=== PATIENT | female | born 1945 | race Caucasian/White ===

== ENCOUNTER 2022-08-30 08:14 | Observation (INO) | payer OTHER ==
[2022-08-30] MEDS ORDERED: LEVALBUTEROL 1.25 MG/3 ML NEB ONE (08:48)
[2022-08-30] MEDS ORDERED: NA CHLORIDE 0.9% 500 ML ONE (08:49)
[2022-08-30 08:50] LABS: Absolute Lymphocytes (CBC) 1.8 K/uL (0.7-4.9); Lymphocytes % 32.2 % (15.3-44.8); MCV 86.2 fL (80-100); MPV 7.7 fL (7.6-11.3)
[2022-08-30 08:51] LABS: Protime INR 1.14
[2022-08-30 09:02] LABS: Albumin 3.2 g/dL (3.4-5.0); BUN Blood Urea Nitrogen 17 mg/dL (7-18); Bicarbonate 23 mmol/L (21-32); Glucose Level 150 mg/dL (74-106); Magnesium 1.9 mg/dL (1.6-2.4); Potassium 3.4 mmol/L (3.5-5.1); Sodium Level 132 mmol/L (136-145)
[2022-08-30 09:10] LABS: ALT/SGPT 58 U/L (13-56); AST/SGOT 65 U/L (15-37); Alkaline Phosphatase 61 U/L (45-117); Bilirubin Direct < 0.1 mg/dL (0-0.2); Bilirubin Total 0.4 mg/dL (0.2-1.0); Glomerular Filtration Rate 65 ml/min (=/>90); NT PRO-BNP 79 pg/mL (<450); Protein, Total 6.7 g/dL (6.4-8.2); Troponin High Sensitivity 9.3 pg/mL (<58.9)
--- NOTE | 2022-08-30 09:37 | RAD REPORT ---
EXAM DESCRIPTION: RAD - Chest Single View - 08/30/2022 9:26 am CLINICAL HISTORY: SOB COMPARISON: 10/22/2017 FINDINGS: Lines: None. Lungs: No evidence of edema or pneumonia. Scattered noncalcified pulmonary nodules . Pleural: No significant pleural effusions or pneumothorax. Cardiac: The heart size is within normal limits. Mediastinum: Within normal limits. Bones: No acute fractures. Other: None IMPRESSION: No acute cardiopulmonary disease.
[2022-08-30] MEDS ORDERED: NA CHLORIDE 0.9% 1,000 ML ONE (09:57)
[2022-08-30 10:19] LABS: SARS-COV-2 RT PCR POSITIVE (NEGATIVE)
[2022-08-30 12:02] LABS: Urine Blood Negative (Negative); Urine Glucose Negative (Negative); Urine Protein Negative (Negative); Urine pH 5.5 (5.0-7.0)
--- NOTE | 2022-08-30 14:07 | EDPHYS ---
Physician Documentation [facility] Name: Yamilet Rhodes Age: 76 yrs Sex: Female : 1945 Arrival Date: 08/30/2022 Time: 08:16 Bed 7 Private MD: ED Physician Rickey Kelly HPI: 08/30 08:30 This 76 yrs old Female presents to ER via Wheelchair with complaints of Weakness. jmm 13:38 This 76 yrs old Female presents to ER via Wheelchair with complaints of Weakness. jmm 08:30 Duration: The symptoms are continuous. This is a 76-year-old female with history of [facility] coronary artery disease, hyperlipidemia, hypertension the presents emerged department with complaints of fatigue, cough, congestion beginning approximately a week ago but worsening over the past 2 days. Patient states she has had falls due to weakness. States having difficulty walking more than a few feet at a time. Denies chest pain.. 14:02 Onset: The symptoms/episode began/occurred gradually. [facility] Historical: - Allergies: 08:22 No Known Allergies; jl7 - Home Meds: 08:22 simvastatin 20 mg Oral tab 1 tab once daily [Active]; metoprolol succinate oral jl7 [Active]; - PMHx: 08:22 CAD; High Cholesterol; Hypertension; Myocardial infarction; jl7 - PSHx: 08:22 Ligation of fallopian tube; jl7 - Immunization history:: Client reports having NOT received the Covid vaccine. - Social history:: Smoking status: Patient denies any tobacco usage or history of. ROS: 08:30 Constitutional: Positive for body aches. jmm 08:30 Respiratory: Positive for cough. 08:30 Neuro: Positive for weakness. 08:30 All other systems are negative. Exam: 08:30 Constitutional: This is a well developed, well nourished patient who is awake, alert, jmm and in no acute distress. Head/Face: atraumatic. Eyes: EOMI, no conjunctival erythema appreciated ENT: Moist Mucus Membranes Neck: Trachea midline, Supple Chest/axilla: Normal chest wall appearance and motion. Cardiovascular: Regular rate and rhythm. No edema appreciated Respiratory: Normal respirations, no respiratory distress appreciated Abdomen/GI: Non distended Back: Normal ROM Skin: General appearance color normal 08:30 MS/ Extremity: Moves all extremities, no obvious deformities appreciated, no edema noted to the lower extremities 08:30 Musculoskeletal/extremity: ROM: intact in all extremities. 08:30 Neuro: Motor: is normal. 11:39 ECG was reviewed by the Attending Physician. [facility] Vital Signs: 08:20 BP 115 / 89; Pulse 65; Resp 28 S; Temp 97.3(TE); Pulse Ox 100% on R/A; Weight 79.38 kg jl7 (R); Height 5 ft. 0 in. (152.40 cm) (R); Pain 9/10; 10:02 BP 138 / 70; Pulse 90; Resp 31; Pulse Ox 98% ; bp 11:22 BP 132 / 83; Pulse 73; Resp 15; Pulse Ox 92% ; bp 12:30 BP 133 / 70; Pulse 68; Resp 21; Pulse Ox 98% ; bp 13:23 BP 138 / 72; Pulse 69; Resp 16; Pulse Ox 97% ; bp 15:19 BP 157 / 74; Pulse 73; Resp 16; Pulse Ox 96% ; bp 08:20 Body Mass Index 34.18 (79.38 kg, 152.40 cm) 7 MDM: 08:24 Patient medically screened. [facility] 14:04 Data reviewed: vital signs, nurses notes, lab test result(s). [facility] 14:04 Consideration of Admission/Observation Patient was admitted/placed on observation. [facility] Management of patient was discussed with the following: Hospitalist: Fabien Marin. I considered the following discharge prescriptions or medication management in the emergency department Medications were administered in the Emergency Department. See MAR. Care significantly affected by the following chronic conditions: Hypertension. Counseling: I had a detailed discussion with the patient and/or guardian regarding: the historical points, exam findings, and any diagnostic results supporting the discharge/admit diagnosis, lab results, radiology results, the need for further work-up and treatment in the hospital. ED course: Repeat lactate is increased from 2.8 to 3.3 after IVF. . 15:01 ED course: a) Source coronavirus b) HR 90 and Resp 31 C) Elevated lactate. [facility] 08/30 08:24 Order name: Basic Metabolic Panel; Complete Time: 09:52 [facility] 08/30 08:24 Order name: CBC with Diff; Complete Time: 08:59 [facility] 08/30 08:24 Order name: LFT's; Complete Time: 09:52 [facility] 08/30 08:24 Order name: Magnesium; Complete Time: 09:52 [facility] 08/30 08:24 Order name: NT PRO-BNP; Complete Time: 09:52 [facility] 08/30 08:24 Order name: PT-INR; Complete Time: 08:59 [facility] 08/30 08:24 Order name: Troponin HS; Complete Time: 09:52 [facility] 08/30 08:24 Order name: COVID-19/FLU A+B; Complete Time: 10:39 [facility] 08/30 08:25 Order name: Lactate w/ 2H reflex if indic.; Complete Time: 09:10 [facility] 08/30 12:03 Order name: Urine Dipstick-Ancillary; Complete Time: 12:13 [facility] 08/30 12:44 Order name: Lactate Sepsis 2 HR Follow-up; Complete Time: 12:45 [facility] 08/30 14:47 Order name: Creatine Phosphokinase [facility] 08/30 14:47 Order name: Urinalysis [facility] 08/30 08:24 Order name: XRAY Chest (1 view); Complete Time: 09:52 [facility] 08/30 08:24 Order name: EKG; Complete Time: 08:25 [facility] 08/30 14:47 Order name: Basic Metabolic Panel [facility] 08/30 14:47 Order name: Basic Metabolic Panel [facility] 08/30 14:47 Order name: Basic Metabolic Panel [facility] 08/30 14:47 Order name: Basic Metabolic Panel [facility] 08/30 14:47 Order name: CBC with Automated Diff EDMS 08/30 14:47 Order name: CBC with Automated Diff MS 08/30 14:47 Order name: CBC with Automated Diff EDMS 08/30 14:47 Order name: CBC with Automated Diff EDMS 08/30 14:47 Order name: Lactate w/ 2H reflex if indic. EDIN 08/30 15:04 Order name: Blood Culture Adult (2) [facility] 08/30 08:24 Order name: Cardiac monitoring; Complete Time: 08:34 [facility] 08/30 08:24 Order name: EKG - Nurse/Tech; Complete Time: 08:33 [facility] 08/30 08:24 Order name: IV Saline Lock; Complete Time: 08:34 [facility] 08/30 08:24 Order name: Labs collected and sent; Complete Time: 08:34 [facility] 08/30 08:24 Order name: O2 Per Protocol; Complete Time: 08:33 [facility] 08/30 08:24 Order name: O2 Sat Monitoring; Complete Time: 08:33 [facility] 08/30 10:14 Order name: Urine Dipstick-Ancillary (obtain specimen); Complete Time: 10:37 [facility] 08/30 13:10 Order name: Misc. Order: ambulate, o2; Complete Time: 14:01 [facility] 08/30 14:47 Order name: Heart Healthy EDMS EC:39 Rate is 62 beats/min. Rhythm is regular. QRS [place] is Normal. NE interval is normal. T jmm waves are Flattened in lead aVL. No ST changes noted. Administered Medications: 08:45 Drug: NS 0.9% 500 ml Route: IV; Rate: bolus; Site: right antecubital; bp 15:12 Follow up: IV Status: Completed infusion; IV Intake: 500ml bp 08:45 Drug: Xopenex (levalbuterol) (3) 1.25 mg Route: Inhalation; bp 09:45 Drug: NS 0.9% 1000 ml Route: IV; Rate: 1 bolus; Site: right antecubital; bp 15:11 Follow up: IV Status: Completed infusion; IV Intake: 1000ml bp Disposition: 08/31 13:32 Co-signature as Attending Physician, Rickey Kelly MD I agree with the assessment and rn plan of care. I reviewed the patient's care provided by the Advanced Practice Provider and agree with the diagnosis and treatment plan. Disposition Summary: 08/30/22 14:06 Hospitalization Ordered Hospitalization Status: Observation [facility] Provider: Cain Kelly Location: Telemetry/MedSurg (observation) jmm Condition: Stable jmm Problem: new jmm Symptoms: are unchanged jmm Bed/Room Type: Standard [facility] Room Assignment: 417(08/30/22 15:02) dw Diagnosis - Coronavirus infection, unspecified jmm - Repeated falls jmm - Metabolic acidosis jmm Forms: - Medication Reconciliation Form jmm - SBAR form jmm Signatures: Dispatcher [employer] EDMS Darshana Scott RN RN Tyrone Chappell PA PA [facility] Rickey Kelly MD MD rn Leal, Jahala, RN RN jl7 Lady, Jason, RN RN bp Corrections: (The following items were deleted from the chart) 08/30 12:53 12:27 LACTATE+[email or web address] barrow. EDMS EDMS 15:02 14:06 vivien garces
--- NOTE | 2022-08-30 14:07 | ER ---
Nurse's Notes [facility] Name: Yamilet Rhodes Age: 76 yrs Sex: Female : 1945 Arrival Date: 08/30/2022 Time: 08:16 Bed 7 Private MD: Diagnosis: Coronavirus infection, unspecified;Repeated falls;Metabolic acidosis Presentation: 08/30 08:20 Chief complaint: Patient states: Shortness of breath, fatigued and pain all over x 1 jl7 week. Coronavirus screen: Vaccine status: Patient reports being unvaccinated. shortness of breath, Client presents with at least one sign or symptom that may indicate coronavirus-19. Ebola Screen: No symptoms or risks identified at this time. Initial Sepsis Screen: Does the patient meet any 2 criteria? No. Patient's initial sepsis screen is negative. Does the patient have a suspected source of infection? No. Patient's initial sepsis screen is negative. Risk Assessment: Do you want to hurt yourself or someone else? Patient reports no desire to harm self or others. Onset of symptoms was August 23, 2022. 08:20 Method Of Arrival: Wheelchair jl7 08:20 Acuity: ESTEPHANIA 3 jl7 Triage Assessment: 08:22 General: Appears in no apparent distress. uncomfortable, Behavior is calm, cooperative, jl7 appropriate for age. Pain: Complains of pain in all over Pain currently is 9 out of 10 on a pain scale. Historical: - Allergies: 08:22 No Known Allergies; jl7 - Home Meds: 08:22 simvastatin 20 mg Oral tab 1 tab once daily [Active]; metoprolol succinate oral jl7 [Active]; - PMHx: 08:22 CAD; High Cholesterol; Hypertension; Myocardial infarction; jl7 - PSHx: 08:22 Ligation of fallopian tube; jl7 - Immunization history:: Client reports having NOT received the Covid vaccine. - Social history:: Smoking status: Patient denies any tobacco usage or history of. Screenin:20 [facility] ED Fall Risk Assessment (Adult) History of falling in the last 3 months, bp including since admission No falls in past 3 months (0 pts). Abuse screen: Denies threats or abuse. Denies injuries from another. Nutritional screening: No deficits noted. Tuberculosis screening: No symptoms or risk factors identified. Assessment: 08:20 General: SEE TRIAGE NOTE. bp 10:02 Reassessment: No changes from previously documented assessment. Patient and/or family bp updated on plan of care and expected duration. Pain level reassessed. 11:23 Reassessment: No changes from previously documented assessment. Patient and/or family bp updated on plan of care and expected duration. Pain level reassessed. 13:22 Reassessment: No changes from previously documented assessment. Patient and/or family bp updated on plan of care and expected duration. Pain level reassessed. Vital Signs: 08:20 BP 115 / 89; Pulse 65; Resp 28 S; Temp 97.3(TE); Pulse Ox 100% on R/A; Weight 79.38 kg jl7 (R); Height 5 ft. 0 in. (152.40 cm) (R); Pain 9/10; 10:02 BP 138 / 70; Pulse 90; Resp 31; Pulse Ox 98% ; bp 11:22 BP 132 / 83; Pulse 73; Resp 15; Pulse Ox 92% ; bp 12:30 BP 133 / 70; Pulse 68; Resp 21; Pulse Ox 98% ; bp 13:23 BP 138 / 72; Pulse 69; Resp 16; Pulse Ox 97% ; bp 15:19 BP 157 / 74; Pulse 73; Resp 16; Pulse Ox 96% ; bp 08:20 Body Mass Index 34.18 (79.38 kg, 152.40 cm) jl7 ED Course: 08:16 Patient arrived in ED. eb 08:16 Tyrone Olmedo PA is PHCP. jmm 08:16 Rickey Kelly MD is Attending Physician. jmm 08:20 Patient has correct armband on for positive identification. Bed in low position. Call bp light in reach. Side rails up X2. 08:22 Triage completed. jl7 08:22 Arm band placed on right wrist. jl7 08:30 Inserted saline lock: 20 gauge in right antecubital area, using aseptic technique. bp Blood collected. 08:31 Jason Narayanan, TONI is Primary Nurse. bp 09:28 XRAY Chest (1 view) In Process Unspecified. EDMS 14:06 Cain Kelly MD is Hospitalizing Provider. jmm 15:18 No provider procedures requiring assistance completed. Patient admitted, IV remains in bp place. Administered Medications: 08:45 Drug: NS 0.9% 500 ml Route: IV; Rate: bolus; Site: right antecubital; bp 15:12 Follow up: IV Status: Completed infusion; IV Intake: 500ml bp 08:45 Drug: Xopenex (levalbuterol) (3) 1.25 mg Route: Inhalation; bp 09:45 Drug: NS 0.9% 1000 ml Route: IV; Rate: 1 bolus; Site: right antecubital; bp 15:11 Follow up: IV Status: Completed infusion; IV Intake: 1000ml bp Intake: 15:11 IV: 1000ml; Total: 1000ml. bp 15:12 IV: 500ml; Total: 1500ml. bp Outcome: 14:06 Decision to Hospitalize by Provider. vivien 15:18 Admitted to Med/surg accompanied by tech, family with patient, via wheelchair, room bp 417, with chart, Report called to HUSAM MUÑOZ 15:18 Condition: stable 15:18 Instructed on the need for admit. 15:46 Patient left the ED. eb Signatures: Dispatcher [employer] EDMS Tyrone Olmedo PA PA jmm Leal, Jahala, RN RN jl7 Jason Narayanan, RN RN Barbara Parker
[2022-08-30] MEDS ORDERED: ONDANSETRON 4 MG/2 ML VIAL IV PRN (14:36)
[2022-08-30] MEDS ORDERED: ACETAMINOPHEN 500 MG TAB PO PRN (14:36)
[2022-08-30] MEDS ORDERED: ALBUTEROL 2.5 MG/3 ML NEB SOL NEB PRN (14:36)
[2022-08-30] MEDS: NA CHLORIDE 0.9% 1,000 ML IV SCH (15:00)
[2022-08-30 16:49] VITALS: BMI 34.2
--- NOTE | 2022-08-30 17:19 | P.HP ---
Certification for Inpatient Patient admitted to: Observation With expected LOS: <2 Midnights Patient will require the following post-hospital care: None Practitioner: I am a practitioner with admitting privileges, knowledge of patient current condition, hospital course, and medical plan of care. Services: Services provided to patient in accordance with Admission requirements found in Title 42 Section 412.3 of the Code of Federal Regulations Patient History Date of Service: 08/30/22 Primary Care Provider: Rhonda Reason for admission: COVID, Fall History of Present Illness: This is a 76-year-old female with prior medical history of hypertension hyperlipidemia and CAD. Patient presents to the hospital with complaints of wea kness. Patient evaluated at bedside with . Patient is alert and oriented x3, no distress noted. Patient reports that her symptoms started a week ago, she stated that she thought she had the flu. She reports associated symptoms of fatigue, diarrhea, shortness of breath, dizziness, headaches. She stated that her symptoms were alleviated with Excedrin. She also reported a fall 3 days ago with no injury sustained. She reports shortness of breath on exertion with improvement while lying down. No reported fevers chills nausea or constipation. Allergies No Known Allergies Allergy (Unverified 10/12/17 06:01) Home Medications: Amlodipine [Norvasc*] 1 tab PO DAILY 10/12/17 Aspirin [Aspirin EC 81 MG] 81 mg PO DAILY #30 tablet. 10/12/17 Metoprolol Tartrate 1 tab PO DAILY 10/12/17 Simvastatin 40 mg PO BEDTIME #30 tablet 10/12/17 hydroCHLOROthiazide [Hydrochlorothiazide] 1 tab PO DAILY 10/12/17 - Past Medical/Surgical History Has patient received pneumonia vaccine in the past: No Diabetic: No -: CAD -: High cholesterol -: HTN -: DE -: Tubal ligation - Family History Father -: Heart disease - Social History Smoking Status: Never smoker Alcohol use: No CD- Drugs: No Caffeine use: Yes Review of Systems General: Weakness Respiratory: Shortness of Breath, SOB with Excertion Gastrointestinal: Diarrhea Physical Examination - Vital Signs Temperature: 97.5 F Blood Pressure: 177/109 Pulse: 70 Respirations: 16 Pulse Ox (%): 94 - Physical Exam General: Alert, In no apparent distress, Oriented x3 HEENT: Atraumatic, Normocephalic, PERRLA Neck: Supple, 2+ carotid pulse no bruit Respiratory: Diminished Cardiovascular: No edema, Normal pulses Capillary refill: <2 Seconds Gastrointestinal: Normal bowel sounds Musculoskeletal: No clubbing, No swelling Integumentary: No rashes, No breakdown Neurological: Normal speech, Normal tone Lymphatics: No axilla or inguinal lymphadenopathy - Studies Laboratory Data (last 24 hrs) 08/30/22 08:30: PT 12.5, INR 1.14 08/30/22 08:30: WBC 5.50, Hgb 12.6, Hct 37.0, Plt Count 209 08/30/22 08:30: Sodium 132 L, Potassium 3.4 L, BUN 17, Creatinine 0.91, Glucose 150 H, Magnesium 1.9, Total Bilirubin 0.4, AST 65 H, ALT 58 H, Alkaline Phosphatase 61 Assessment and Plan - Plan Assessment COVID HTN HLD CAD Plan Continue supportive therapy, oxygen as as needed Continue droplet isolation Resume home antihypertensive medication when appropriate Continue statin and aspirin DVT PPX- Lovenox Discharge Plan: Home Plan to discharge in: 48 Hours - Advance Directives Does patient have a Living Will: No Does patient have a Durable POA for Healthcare: No - Code Status/Comfort Care Code Status Assessed: Yes (Full code) Time Spent Managing Pts Care (In Minutes): 50
[2022-08-31] MEDS: NA CHLORIDE 0.9% 1,000 ML IV SCH (01:24)
[2022-08-31 04:33] LABS: Absolute Lymphocytes (CBC) 1.5 K/uL (0.7-4.9); Hematocrit 35.9 % (36.0-45.0); MCV 85.4 fL (80-100); MPV 7.6 fL (7.6-11.3)
[2022-08-31 04:51] LABS: Potassium 3.7 mmol/L (3.5-5.1)
[2022-08-31] MEDS ORDERED: POTASSIUM CL SA 10 MEQ TAB PO ONE (09:00)
[2022-08-31] MEDS ORDERED: ENOXAPARIN 40 MG/0.4 ML SQ SCH (09:00)
[2022-08-31] MEDS ORDERED: ASPIRIN EC 81 MG TAB PO SCH (09:00)
[2022-08-31 09:18] VITALS: O2SAT 99
[2022-08-31] MEDS ORDERED: AMLODIPINE 5 MG TAB PO SCH (09:35)
[2022-08-31] MEDS ORDERED: METOPROLOL TAR 50 MG TAB PO SCH (09:35)
[2022-08-31 09:38] VITALS: BP 165/95; TEMP 97.9
--- NOTE | 2022-09-01 16:57 | EKG ---
Test Date: 2022-08-30 Test Time: 08:27:17 Supervisor Net Making: RENZO MEASUREMENT RESULTS: Intervals: Rate: 62 AK: 162 QRSD: 100 QT: 474 QTc: 481 Lohman: P: 71 AK: 162 QRS: -17 T: 41 INTERPRETIVE STATEMENTS: Normal sinus rhythm Inferior infarct, age undetermined Anterolateral infarct, age undetermined Abnormal ECG Compared to ECG 10/12/2017 02:37:48 Sinus arrhythmia no longer present Left-axis deviation no longer present Myocardial infarct finding still present Electronically Signed On 09-01-22 16:55:09 PAYROLL CLERK by Arie Davalos
== END 2022-08-31 11:08 | disposition home or self-care (01) ==
LOC: ER 08:14 → ERHOLD 14:34 → 4TH 15:18
PROVIDERS: ADMIT Hospitalist; ATTEND Hospitalist
DX: U07.1 COVID-19 (principal); E87.20 Acidosis, unspecified; R06.02 Shortness of breath; R53.1 Weakness; I10 Essential (primary) hypertension; E78.5 Hyperlipidemia, unspecified; I25.10 Atherosclerotic heart disease of native coronary artery without angina pectoris; I25.2 Old myocardial infarction; E78.00 Pure hypercholesterolemia, unspecified; R29.6 Repeated falls
CPT/HCPCS: 96361; 93005; 87040 ×2; 85025 ×2; 80048 ×2; 36415 ×2; 83735; 82550; 85610; 80076; 83605 ×4; 81003; 84484; 83880; 0240U; 71045; 96360; 99285; J7614; J1650; J7040; J7030 ×4; G0378 ×3